=== PATIENT | male | born 1945 | race Caucasian/White ===

== ENCOUNTER 2016-12-05 14:00 | Outpatient (RCR) | payer OTHER | END 2016-12-13 | disposition home or self-care (01) | LOC: PTY 14:00 | DX: G90.50 Complex regional pain syndrome I, unspecified (principal); M54.31 Sciatica, right side ==

== ENCOUNTER 2016-12-16 10:15 | Outpatient (RCR) | payer OTHER | END 2017-01-12 | disposition home or self-care (01) | LOC: PTY 10:15 | DX: G90.50 Complex regional pain syndrome I, unspecified (principal); M54.31 Sciatica, right side | CPT/HCPCS: 97110; 97140; G0283 ==

== ENCOUNTER 2017-01-06 12:30 | Outpatient (RCR) | payer OTHER | END 2017-01-12 | disposition home or self-care (01) | LOC: PTY 12:30 | DX: M54.31 Sciatica, right side (principal); G90.50 Complex regional pain syndrome I, unspecified | CPT/HCPCS: 97110; 97162; G0283 ==

== ENCOUNTER 2017-01-16 11:00 | Outpatient (RCR) | payer OTHER | END 2017-02-12 | disposition home or self-care (01) | LOC: PTY 11:00 | DX: G90.50 Complex regional pain syndrome I, unspecified (principal); M54.31 Sciatica, right side | CPT/HCPCS: 97110; G0283 ==

== ENCOUNTER 2017-01-20 12:30 | Outpatient (RCR) | payer OTHER | END 2017-02-12 | disposition home or self-care (01) | LOC: PTY 12:30 | DX: M54.31 Sciatica, right side (principal); G90.50 Complex regional pain syndrome I, unspecified | CPT/HCPCS: 97110; 97140; G0283 ==

== ENCOUNTER 2017-02-14 11:04 | Outpatient (RCR) | payer OTHER | END 2017-03-14 | disposition home or self-care (01) | LOC: PTY 11:04 | DX: G90.50 Complex regional pain syndrome I, unspecified (principal); M54.31 Sciatica, right side | CPT/HCPCS: 97110; G0283 ==

== ENCOUNTER 2017-02-25 13:45 | Outpatient (RCR) | payer OTHER | END 2017-03-14 | disposition home or self-care (01) | LOC: PTY 13:45 | DX: M54.31 Sciatica, right side (principal); G90.50 Complex regional pain syndrome I, unspecified | CPT/HCPCS: 97110; 97140; G0283 ==